=== PATIENT | male | born 1960 | race Caucasian/White ===

== ENCOUNTER 2016-11-03 12:52 | Emergency (ER) | payer OTHER ==
[~2016-11-03] VITALS: Ht 182.9 cm; Wt 81.6 kg
[2016-11-03 13:00] VITALS: BP 149/92
== END 2016-11-03 13:59 | disposition home or self-care (01) ==
LOC: ER 12:55
DX: L03.115 Cellulitis of right lower limb (principal); I10 Essential (primary) hypertension; F41.9 Anxiety disorder, unspecified
CPT/HCPCS: A4606; Z7610